=== PATIENT | female | born 1940 | race Caucasian/White ===

== ENCOUNTER → 2017-09-16 | Outpatient (CLI) | payer MEDICARE, OTHER | END | disposition home or self-care (01) | LOC: VAS 13:50 | DX: R60.9 Edema, unspecified (principal) | CPT/HCPCS: 93970 ==

== ENCOUNTER → 2018-02-05 | Outpatient (CLI) | payer MEDICARE, OTHER | END | disposition home or self-care (01) | LOC: VAS 14:19 | DX: R60.9 Edema, unspecified (principal) | CPT/HCPCS: 93971 ==

== ENCOUNTER 2018-03-29 14:56 | Inpatient (IN) | payer MEDICARE, OTHER ==
[2018-03-29] MEDS: SOD CHLORIDE 0.9% 1,000 ML IV (15:50)
[2018-03-29 15:56] LABS: ADD MAN DIFF? NO
[2018-03-29 15:57] LABS: BASOPHILS % 0.2 % (0.0-2.0); EOSINOPHILS % 0.1 % (0.0-7.0); HEMATOCRIT 42.7 % (37.0-47.0); HEMOGLOBIN 14.9 g/dl (12.0-16.0); LYMPHOCYTES # 2.4 10^3/ul (0.8-2.9); LYMPHOCYTES % 13.5 % (15.0-51.0); MEAN CORPUSCULAR HEMOGLOBIN 31.2 pg (29.0-33.0); MEAN CORPUSCULAR HGB CONC 34.9 g/dl (32.0-37.0); MEAN CORPUSCULAR VOLUME 89.3 fl (82.0-101.0); MEAN PLATELET VOLUME 10.2 fl (7.4-10.4); MONOCYTE # 1.1 10^3/ul (0.3-0.9); MONOCYTES % 6.2 % (0.0-11.0); NEUTROPHIL # 14.3 10^3/ul (1.6-7.5); NEUTROPHILS % 79.4 % (39.0-77.0); PLATELET COUNT 350 10^3/UL (140-415); RED BLOOD COUNT 4.78 10^6/ul (4.20-5.40); RED CELL DISTRIBUTION WIDTH 12.7 % (11.5-14.5)
[2018-03-29 16:17] LABS: ALANINE AMINOTRANSFERASE 52 IU/L (13-69); ALBUMIN/GLOBULIN RATIO 1.17; ALKALINE PHOSPHATASE 134 IU/L (42-121); ANION GAP 10 (5-13); ASPARTATE AMINO TRANSFERASE 33 IU/L (15-46); BILIRUBIN,INDIRECT 0.8 mg/dl (0-1.1); BILIRUBIN,TOTAL 0.8 mg/dl (0.2-1.3); BLOOD UREA NITROGEN 16 mg/dl (7-20); CALCIUM 9.5 mg/dl (8.4-10.2); CARBON DIOXIDE 26 mmol/L (21-31); CHLORIDE 104 mmol/L (97-110); CREATINE KINASE 803 IU/L (23-200); CREATININE 0.77 mg/dl (0.44-1.00); GLUCOSE 199 mg/dl (70-220); POTASSIUM 3.5 mmol/L (3.5-5.1); SODIUM 140 mmol/L (135-144); TOTAL PROTEIN 7.4 g/dl (6.1-8.1)
[2018-03-29 17:54] LABS: ADD UMIC YES; UR ASCORBIC ACID NEGATIVE (NEGATIVE); UR BACTERIA FEW /HPF (NONE SEEN); UR BILIRUBIN (Dip) NEGATIVE (NEGATIVE); UR BLOOD (Dip) 3+ mg/dL (NEGATIVE); UR CLARITY CLOUDY (CLEAR); UR COLOR AMBER (YELLOW); UR GLUCOSE (Dip) 1+ mg/dL (NEGATIVE); UR KETONES (Dip) 1+ mg/dL (NEGATIVE); UR LEUKOCYTE ESTERASE (Dip) 2+ Leu/ul (NEGATIVE); UR MUCUS MANY /HPF (NONE SEEN); UR NITRITE (Dip) POSITIVE (NEGATIVE); UR RBC 10 /HPF (0-5); UR SPECIFIC GRAVITY (Dip) 1.021 (1.003-1.030); UR TOTAL PROTEIN (Dip) 2+ mg/dl (NEGATIVE); UR UROBILINOGEN (Dip) NEGATIVE (NEGATIVE); UR WBC 56 /HPF (0-5)
[2018-03-29] MEDS: CEFTRIAXONE 1 GM/50 ML (PMX) 50 ML IVPB (18:47)
[2018-03-29] MEDS ORDERED: ONDANSETRON 4 MG INJ IV ×2 (19:00→21:30)
[2018-03-29] MEDS ORDERED: ACETAMINOPHEN 325 MG TAB PO ×2 (19:00→21:30)
[2018-03-29] MEDS ORDERED: HYDROCODONE/APAP (5/325) TAB PO (21:30)
[2018-03-29] MEDS ORDERED: DIAZEPAM 5 MG TAB PO (21:30)
[2018-03-29] MEDS ORDERED: HYDROCODONE/APAP (10/325) TAB PO (21:30)
[2018-03-29] MEDS ORDERED: GLUCOSE GEL 15 GRAM TUBE PO ×2 (22:00)
[2018-03-29] MEDS ORDERED: DEXTROSE 50% 50 ML SYRINGE IV ×2 (22:00)
[2018-03-29] MEDS ORDERED: GLUCAGON 1 MG INJ IM (22:00)
[2018-03-29] MEDS ORDERED: DIAZEPAM 2 MG TAB PO (22:00)
[2018-03-29] MEDS ORDERED: GLUCOSE GEL 15 GRAM TUBE BUCCAL (22:00)
[2018-03-29] MEDS: INSULIN ASPART [NOVOLOG] 3 ML PEN SC (22:54)
[2018-03-30] MEDS: ACCU-CHEK XX (01:19)
[2018-03-30] MEDS: LEVOTHYROXINE 75 MCG TAB PO (06:12)
[2018-03-30] MEDS: INSULIN ASPART [NOVOLOG] 3 ML PEN SC ×3 (08:39→17:56)
[2018-03-30] MEDS ORDERED: NON-FORMULARY/PATIENT OWN MED (Liraglutide (Victoza 2-Pak) 1.2 MG) SQ (09:00)
[2018-03-30] MEDS ORDERED: NON-FORMULARY/PATIENT OWN MED (Mirabegron (Mybetriq) 25 MG) PO (09:00)
[2018-03-30] MEDS: CEFTRIAXONE 1 GM/50 ML (PMX) 50 ML IVPB (11:54)
[2018-03-30] MEDS: metFORMIN 500 MG TAB PO (13:11)
[2018-03-30] MEDS ORDERED: [UNRECOGNIZED DRUG - REMARK] XX (17:30)
[2018-03-30] MEDS ORDERED: [UNRECOGNIZED DRUG - OTHER] XX (17:30)
[2018-03-30] MEDS ORDERED: MIRABEGRON 25 MG XX (17:30)
== END 2018-03-30 18:50 | disposition home health service (06) | DRG 552 ==
LOC: E/R 14:56 → 2NE 18:45
DX: M51.36 Other intervertebral disc degeneration, lumbar region (principal); N39.0 Urinary tract infection, site not specified; I11.0 Hypertensive heart disease with heart failure; I50.9 Heart failure, unspecified; M54.5 Low back pain; E11.9 Type 2 diabetes mellitus without complications; E03.9 Hypothyroidism, unspecified; F41.9 Anxiety disorder, unspecified; T79.6XXA Traumatic ischemia of muscle, initial encounter; W18.2XXA Fall in (into) shower or empty bathtub, initial encounter; Z79.84 Long term (current) use of oral hypoglycemic drugs
CPT/HCPCS: 36415; 71045; 72100; 72170; 80053; 81001; 82550; 82962; 83605; 85025; 87086; 90686; 93005; 97162; 99285-25